=== PATIENT | female | born 1990 | race Two or more races ===

== ENCOUNTER 2023-12-05 09:55 | Emergency (ER) | payer OTHER ==
[~2023-12-05] VITALS: Ht 162.6 cm; Wt 72.6 kg
[2023-12-05] MEDS ORDERED: ACETAMINOPHEN ES 500 MG TABLET ONE (10:23)
[2023-12-05] MEDS: ACETAMINOPHEN ES 500 MG TABLET PO ONE (10:27)
[2023-12-05 11:39] VITALS: BP 141/85; TEMP 98.9; O2SAT 100
== END 2023-12-05 11:39 | disposition home or self-care (01) ==
LOC: ER 10:31
DX: S40.022A Contusion of left upper arm, initial encounter (principal); V49.59XA Passenger injured in collision with other motor vehicles in traffic accident, initial encounter; Y93.89 Activity, other specified; Y92.488 Other paved roadways as the place of occurrence of the external cause; Y99.8 Other external cause status
CPT/HCPCS: 73060-TC; 73090-TC